=== PATIENT | male | born 1980 | race Caucasian/White ===

== ENCOUNTER 2018-10-24 01:01 | Emergency (ER) | payer OTHER ==
[2018-10-24] MEDS ORDERED: HYDROmorphone 1 MG/ML Syringe IM ONE (02:12)
[2018-10-24] MEDS ORDERED: traMADol 50 MG Tab PO ONE (02:32)
--- NOTE | 2018-10-24 03:43 | ER ---
REASON FOR EMERGENCY ROOM VISIT: Hand injury. HISTORY OF PRESENT ILLNESS: This 38-year-old man was [place] and using a hand crank winch with his right hand, the handle slipped out of his hand and the winch handle rapidly came around and smacked him on his right 4th knuckle area overlying the distal metacarpal or proximal phalanx area. He suffered severe pain and some swelling in the area and suspected a possible fracture. He denies any numbness in his fingers at this time. No other injuries. PAST MEDICAL HISTORY: 1. History of a fractured 4th metacarpal on the right hand requiring open reduction and internal fixation with a plate. 2. Two bone fractures in his foot. 3. History of right boxer's fracture. CURRENT MEDICATIONS: None. ALLERGIES: None to medications. PHYSICAL EXAMINATION: GENERAL: He is alert and cooperative, in no acute distress. VITAL SIGNS: He is afebrile, pulse of 83, blood pressure 138/71, respirations 18. MUSCULOSKELETAL: Examination of his right hand reveals some tenderness and swelling over the proximal right ring finger. There was no definite bony crepitus detected on passive range of motion, but manipulation was limited due to pain and swelling. Distally, he had good capillary refill and sensation was intact. There was no overt gross deformity of the ring finger itself. DIAGNOSTIC DATA: X-rays obtained of the right hand, 4 views, show an impacted 4th proximal phalanx fracture. It appears to possibly involve the actual joint surface. Also noted was a plate over the old 4th metacarpal fracture. COURSE IN THE EMERGENCY ROOM: I informed the patient of this and feel that he needs to see an orthopedic surgeon. He indicated to me that he would like to defer this until he gets back home to [place] and that he is planning on flying back there tomorrow morning. He assures me that he would be able to get in to see his primary care provider promptly. He was then given 1 mg of Dilaudid IM for pain control, and after a period of time, an ulnar gutter splint was fashioned and applied. Subsequent to this, there was no impairment of circulation and sensation remained intact distally. He was instructed on care and management of this. He was given tramadol 50 mg, dispensed #4, one every 4-6 hours p.r.n. pain. He does not think he will need these, but this is just in case the pain gets severe between now and the time he gets back home. All questions were answered. LILIA /[id number] ODALIS
--- NOTE | 2018-10-24 09:11 | CR ---
Right hand: Four views of the left hand were obtained. Comparison: No prior hand exam. Fracture is identified within the base of the proximal phalanx of the fourth finger. Slight articular extension is seen. Old healed fracture is noted within distal fifth metacarpal as well as plate and screws affixing an old fracture within the fourth metacarpal shaft. No additional bony abnormality is seen. Impression: 1. Fracture as noted above with articular extension involving the fourth digit. 2. Evidence of old bony trauma. Diagnostic code #3 I agree with preliminary report from [facility], finalized on 10/24/18, 3:50 AM Central Time
--- NOTE | 2018-11-07 07:03 | ER ---
ADDENDUM: REVIEW OF SYSTEMS: Pertinent positives and negatives as listed in the HPI. FINAL IMPRESSION: Right 4th proximal phalanx fracture. MMODAL /[id number]
== END 2018-10-24 02:42 | disposition home or self-care (01) ==
LOC: JD.ED 01:01
DX: S62.614A Displaced fracture of proximal phalanx of right ring finger, initial encounter for closed fracture (principal); W20.8XXA Other cause of strike by thrown, projected or falling object, initial encounter; Y99.0 Civilian activity done for income or pay
CPT/HCPCS: 29125; 73130; 96372; 99283; A9270; J1170